=== PATIENT | female | born 1960 | race Caucasian/White ===

== ENCOUNTER → 2020-08-30 | Outpatient (CLI) | payer BC | LOC: MC.RAD 08-22 13:00 | DX: R92.2 Inconclusive mammogram (principal) ==

== ENCOUNTER → 2022-01-29 | Outpatient (CLI) | payer BC | LOC: MC.RAD 14:45 | DX: Z12.31 Encounter for screening mammogram for malignant neoplasm of breast (principal); Z00.00 Encounter for general adult medical examination without abnormal findings ==

== ENCOUNTER → 2022-02-12 | Outpatient (CLI) | payer BC | LOC: ZCOL.LAB 17:45 | DX: M79.605 Pain in left leg (principal); M79.89 Other specified soft tissue disorders ==